=== PATIENT | male | born 1970 | race African-American/Black ===

== ENCOUNTER 2016-12-04 19:57 | Emergency (ER) | payer OTHER ==
[2016-12-04 20:08] VITALS: TEMP 98.4; BMI 32.5
[2016-12-04] MEDS ORDERED: KETOROLAC TROMETHAMINE 60 MG/2 ML VIAL IM ONE (21:54)
--- NOTE | 2016-12-04 21:55 | PDOC ---
History of Present Illness - General History Source: Patient, Significant Other Exam Limitations: No Limitations - History of Present Illness Initial Comments: 12/04/16 21:58 The patient is a 46 year old male, with a significant past medical history of hypertension, diverticulitis s/p hemicolectomy (2007), who presents to the emergency department with an exacerbation of his chronic left leg pain. The patient reports that for nearly a month he has had a shooting pain from his left buttox to the sole of his left foot. He reports that today the pain has become unbearable and is a 10/10 in severity. 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 The patient states that he saw his PCP and was given the anti inflammatory celebrex for the pain but has not felt any relief. The patient notes that he had a slipped disc in his back from pushing a car many years ago. He denies any abdominal pain, groin numbness, and bowel or bladder incontinence / retention. Allergies: cefroxadine, banana, maddox, strawberry Past surgical history:hemicolectomy (2007) Social history: Never smoked, occasional alcohol use PCP:Dr. Berenice Patiño <Tita Monge - Last Filed: 12/04/16 21:58> <Mariposa Paul - Last Filed: 12/05/16 02:31> - General Chief Complaint: Pain, Acute Stated Complaint: LEFT LEG PAIN X 1 MONTH Time Seen by Provider: 12/04/16 20:01 Past History <Tita Monge - Last Filed: 12/04/16 21:58> - Past Medical History HTN: Yes - Surgical History Abdominal Surgery: Yes (COLON RESECTION S/P DIVERTICULITIS) - Psycho/Social/Smoking Cessation Hx Anxiety: No Suicidal Ideation: Yes Smoking History: Never smoked Have you smoked in the past 12 months: No Information on smoking cessation initiated: No Hx Alcohol Use: Yes (OCCAS) Drug/Substance Use Hx: No Substance Use Type: None <Mariposa Paul - Last Filed: 12/05/16 02:31> - Past Medical History Allergies/Adverse Reactions: Allergies Allergy/AdvReac Type Severity Reaction Status Date / Time banana Allergy Intermediate Swelling Verified 05/21/17 19:59 maddox flavor Allergy Intermediate Swelling Verified 12/04/16 19:59 strawberry Allergy Intermediate Swelling Verified 12/04/16 19:59 cefroxadine Allergy Verified 12/04/16 19:59 Home Medications: Ambulatory Orders Amlodipine Besylate [Norvasc -] 5 mg PO DAILY 12/04/16 Celecoxib 200 mg PO DAILY 12/04/16 *Physical Exam - Vital Signs Last Vital Signs Temp Pulse Resp BP Pulse Ox 98.4 F 96 H 16 168/96 100 12/04/16 20:02 12/04/16 20:02 12/04/16 20:02 12/04/16 20:02 12/04/16 20:02 <Tita Monge - Last Filed: 12/04/16 21:58> - Vital Signs Last Vital Signs Temp Pulse Resp BP Pulse Ox 98.4 F 96 H 16 168/96 100 12/04/16 20:02 12/04/16 20:02 12/04/16 20:02 12/04/16 20:02 12/04/16 20:02 - Physical Exam Comments: GENERAL: Adult male, in mild distress secondary to left buttock/lower extremity pain HEAD: Normal with no signs of trauma. EYES: PERRLA, EOMI, sclera anicteric, conjunctiva clear. ENT: Ears normal, nares patent, oropharynx clear without exudates. Dry mucous membranes. NECK: Normal range of motion, supple without lymphadenopathy, JVD, or masses. LUNGS: Breath sounds equal, clear to auscultation bilaterally. No wheezes, and no crackles. HEART:Regular rate and rhythm, normal S1 and S2 without murmur, rub or gallop. ABDOMEN:.normal bowel sounds No guarding,tenderness or rebound.No masses No distention. EXTREMITIES: Left legmoderate mid buttock tenderness; mild posterior thigh/ popliteal/calf tenderness on palpation No significant edema or cords palpated Positive pain on straight leg raising at 20 ; motor 5/5 Remainder of the extremity exam is normal NEUROLOGICAL: Cranial nerves II through XII grossly intact. Normal speech. No focal neurological deficits. MUSCULOSKELETAL: Back non-tender to palpation, no CVA tenderness SKIN: Warm, Dry, normal turgor, no rashes or lesions noted. <Mariposa aPul - Last Filed: 12/05/16 02:31> Progress Note - Progress Note Progress Note: Documentation has been prepared under my direction and personally reviewed by me in its entirety. I attest that this documented accurately reflects all work, treatment, procedures and medical decision making performed by me. 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 The patient has been seen by his general medical doctor and has not worked since the 25 of November. He is not scheduled for work until he is had reevaluation by his general medical doctor on December 13. He presents tonight because the Celebrex that his PMD prescribed has not been effective for his pain. Although his doctor has called in prescription for oral Toradol, pharmacy had difficulty understanding the prescription and is awaiting call back from patient's PMD to fill it. Exam as noted Although is consistent with sciatica with tenderness in buttock and posterior leg, Doppler/duplex venous exam performed to rule out DVT. Meanwhile, patient received Toradol 60 mg IM. Vascular study shows no evidence of DVT Results discussed with the patient and his . Patient had minimal amount of relief of his pain with Toradol and was given Dilaudid 1 mg IM. Patient reports significant relief after Dilaudid 1 mg IM Patient will be discharged with advice to follow-up with his general medical doctor; he should see her within the next few days after prescription for oral dosing of Toradol is filled and used by the patient. If he experiences severe pain/numbness/weakness in the leg or has any difficulty with urinary/bowel incontinence or retention, he should return immediately to the emergency room <Mariposa Paul - Last Filed: 12/05/16 02:31> *DC/Admit/Observation/Transfer - Attestations Scribe Attestion: Documentation prepared by DARIUS Roper, acting as medical lab technologist for Mariposa Paul MD. <Tita Monge - Last Filed: 12/04/16 21:58> <Mariposa Paul - Last Filed: 12/05/16 02:31> Diagnosis at time of Disposition: Sciatica of left side - Discharge Dispostion Disposition: HOME Condition at time of disposition: Stable - Referrals Referrals: Berenice Manule [Primary Care Provider] - - Patient Instructions Printed Discharge Instructions: Sciatica Additional Instructions: Call your general doctor tomorrow regarding Toradol prescription Follow-up with your doctor within the next 5 days Return to ER if you have worsening pain/numbness/weakness of leg
[2016-12-04] MEDS ORDERED: KETOROLAC TROMETHAMINE 60 MG/2 ML VIAL ONE (22:12)
[2016-12-04] MEDS ORDERED: HYDROmorphone HCL CARPU-JECT 1 MG/1 ML DISP.SYRIN IM ONE (23:53)
[2016-12-04] MEDS ORDERED: HYDROmorphone HCL CARPU-JECT 2 MG/1 ML DISP.SYRIN ONE (23:56)
[2016-12-05 00:05] VITALS: BP 129/96; PULSE 76
== END 2016-12-05 00:12 | disposition home or self-care (01) ==
LOC: FER 19:57
PROC: 3E0233Z Introduction of Anti-inflammatory into Muscle, Percutaneous Approach (ICD-10-PCS; principal; 2016-12-04)
PROC: 3E023NZ Introduction of Analgesics, Hypnotics, Sedatives into Muscle, Percutaneous Approach (ICD-10-PCS; 2016-12-04)
DX: M54.32 Sciatica, left side (principal); I10 Essential (primary) hypertension; G89.29 Other chronic pain
CPT/HCPCS: 93971-TC; 99281-25

== ENCOUNTER 2017-08-02 00:58 | Emergency (ER) | payer OTHER ==
[2017-08-02 01:11] VITALS: TEMP 97.2; BMI 31.1
[2017-08-02 01:45] VITALS: BP 151/88; PULSE 76
[2017-08-02] MEDS ORDERED: IBUPROFEN 400 MG TABLET (FP) PO ONE ×2 (01:45→01:46)
--- NOTE | 2017-08-02 02:46 | PDOC ---
History of Present Illness - General Chief Complaint: Pain, Acute Stated Complaint: INFECTION OF RIGHT GREAT TOE - History of Present Illness Initial Comments: 08/02/17 06:36 c/o increasing r great toe pain x days no fever has soaked it without relief hx of same--ingrown toenail treated by podiatry fhx: non-contrib ros: reviewed and otherwise negative o/w NAD no diaphoresis rrr cta r great toe: ingrown toenail with paronychia and some surrounding erythema procedure: great toe block with 2% lido, 3cc soaked with H2O2 lateral border of R great toenail removed, paronychia drained bacitacin + bandage a/p ingrown toenail treated with partial nail removal Past History - Past Medical History Allergies/Adverse Reactions: Allergies Allergy/AdvReac Type Severity Reaction Status Date / Time banana Allergy Intermediate Swelling Verified 08/02/17 01:04 maddox flavor Allergy Intermediate Swelling Verified 08/02/17 01:04 strawberry Allergy Intermediate Swelling Verified 08/02/17 01:04 cefroxadine Allergy Verified 08/02/17 01:04 Home Medications: Ambulatory Orders Losartan Potassium 100 mg PO DAILY 08/02/17 Oxycodone HCl/Acetaminophen [Percocet 5-325 mg Tablet] 2 tab PO Q6H PRN #6 tablet MDD 8 tabs 08/02/17 COPD: No HTN: Yes - Surgical History Abdominal Surgery: Yes (COLON RESECTION S/P DIVERTICULITIS) - Suicide/Smoking/Psychosocial Hx Smoking History: Never smoked Have you smoked in the past 12 months: No Information on smoking cessation initiated: No Hx Alcohol Use: No Drug/Substance Use Hx: No Substance Use Type: None *Physical Exam - Vital Signs Last Vital Signs Temp Pulse Resp BP Pulse Ox 97.2 F L 100 H 16 153/94 99 08/02/17 01:06 08/02/17 01:06 08/02/17 01:06 08/02/17 01:06 08/02/17 01:06 *DC/Admit/Observation/Transfer Diagnosis at time of Disposition: Ingrown right big toenail - Discharge Dispostion Disposition: HOME Condition at time of disposition: Stable - Prescriptions Prescriptions: Oxycodone HCl/Acetaminophen [Percocet 5-325 mg Tablet] 2 tab PO Q6H PRN #6 tablet MDD 8 tabs PRN Reason: Severe Pain - Referrals - Patient Instructions Printed Discharge Instructions: DI for Ingrown Toenail Removal - Post Discharge Activity
== END 2017-08-02 01:50 | disposition home or self-care (01) ==
LOC: FER 00:58
DX: L60.0 Ingrowing nail (principal)
CPT/HCPCS: 99281-25

== ENCOUNTER 2020-10-02 05:19 | Day surgery (SDC) | payer OTHER ==
[2020-10-01 11:24] VITALS: BMI 31.1
[2020-10-02] MEDS ORDERED: LIDOCAINE HCL 1%, 10 MG/ML (50 mL VIAL) NR ONE (10:00)
[2020-10-02] MEDS ORDERED: IOHEXOL 180 MG/1 ML ML IJ ONE (10:00)
[2020-10-02] MEDS ORDERED: BUPIVACAINE HCL/PF 0.75% 10 ML VIAL NR ONE (10:00)
[2020-10-02 10:27] VITALS: TEMP 97.3
[2020-10-02 11:18] VITALS: BP 140/86; PULSE 70
== END 2020-10-02 10:35 | disposition home or self-care (01) ==
LOC: JASU-SURG 05:19
PROVIDERS: ATTEND Pain Medicine Pain Medicine
PROC: BR16YZZ Fluoroscopy of Lumbar Facet Joint(s) using Other Contrast (ICD-10-PCS; 2020-10-02)
PROC: 3E0T3BZ Introduction of Anesthetic Agent into Peripheral Nerves and Plexi, Percutaneous Approach (ICD-10-PCS; principal; 2020-10-02 09:00)
DX: M47.816 Spondylosis without myelopathy or radiculopathy, lumbar region (principal)
CPT/HCPCS: 76000-TC-FY

== ENCOUNTER 2021-09-17 04:14 | Day surgery (SDC) | payer OTHER ==
[2021-09-16 12:03] VITALS: BMI 30.5
[~2021-09-17 04:14] MED LIST: BUPIVACAINE HCL/PF 0.75% 10 ML VIAL NR ONE; IOHEXOL 180 MG/1 ML ML IJ ONE; LIDOCAINE 1% P/F 10 MG/ML VIAL INF ONE
[2021-09-17] MEDS ORDERED: BUPIVACAINE HCL/PF 0.75% 10 ML VIAL ONE (07:19)
[2021-09-17] MEDS ORDERED: LIDOCAINE HCL/PF 1% SDV 5ML VIAL ONE (07:19)
[2021-09-17] MEDS ORDERED: LIDOCAINE 1% P/F 10 MG/ML VIAL INF ONE (09:46)
[2021-09-17] MEDS ORDERED: IOHEXOL 180 MG/1 ML ML IJ ONE (09:47)
[2021-09-17] MEDS ORDERED: BUPIVACAINE HCL/PF 0.75% 10 ML VIAL NR ONE (09:50)
[2021-09-17 11:42] VITALS: BP 139/69; PULSE 81; TEMP 98
== END 2021-09-17 10:40 | disposition home or self-care (01) ==
LOC: JASU-SURG 04:14
PROVIDERS: ATTEND Pain Medicine Pain Medicine
PROC: BR16YZZ Fluoroscopy of Lumbar Facet Joint(s) using Other Contrast (ICD-10-PCS; 2021-09-17)
PROC: 3E0T3BZ Introduction of Anesthetic Agent into Peripheral Nerves and Plexi, Percutaneous Approach (ICD-10-PCS; principal; 2021-09-17 10:00)
DX: M47.816 Spondylosis without myelopathy or radiculopathy, lumbar region (principal)
CPT/HCPCS: 76000-TC-FY

== ENCOUNTER 2022-09-11 21:50 | Emergency (ER) | payer OTHER ==
[2022-09-11 22:09] VITALS: BP 176/91; PULSE 119; RESP 16; TEMP 97.9; BMI 30.5
[2022-09-11] MEDS ORDERED: TOBRA 0.3%/DEXAMETH 0.1% OPHTHALMIC SUSP 2.5 ML BTL OU STA (22:58)
== END 2022-09-11 23:12 | disposition home or self-care (01) ==
LOC: FER 21:50
DX: H53.8 Other visual disturbances (principal)
CPT/HCPCS: 99283-25

== ENCOUNTER 2023-05-05 22:30 | Emergency (ER) | payer OTHER ==
[2023-05-05] MEDS ORDERED: IBUPROFEN 400 MG TABLET (FP) PO ONE ×2 (22:40→22:42)
[2023-05-05 22:42] VITALS: BMI 30.4
[2023-05-05] MEDS ORDERED: CYCLOBENZAPRINE HCL 10 MG TABLET (FP) PO ONE (23:17)
[2023-05-05] MEDS ORDERED: CYCLOBENZAPRINE HCL 5 MG TABLET ONE (23:30)
[2023-05-05 23:33] VITALS: BP 132/70; PULSE 88; RESP 16; TEMP 98.7
== END 2023-05-05 23:32 | disposition home or self-care (01) ==
LOC: FER 22:30
DX: M54.2 Cervicalgia (principal); M54.50 Low back pain, unspecified; M54.6 Pain in thoracic spine; M62.838 Other muscle spasm; S16.1XXA Strain of muscle, fascia and tendon at neck level, initial encounter; S39.012A Strain of muscle, fascia and tendon of lower back, initial encounter; V49.40XA Driver injured in collision with unspecified motor vehicles in traffic accident, initial encounter; Y93.I9 Activity, other involving external motion
CPT/HCPCS: 72050-TC-FY; 72070-TC-FY; 72100-TC-FY; 99283-25